=== PATIENT | female | born 1965 | race Caucasian/White ===

== ENCOUNTER 2017-08-29 08:42 | Day surgery (SDC) | payer OTHER ==
[~2017-08-29 08:42] MED LIST: CEFAZOLIN 1 GM INJ
[2017-08-29] MEDS ORDERED: DEXAMETHASONE 4 MG/ML 1 ML INJ ×2 (09:34→09:56)
[2017-08-29] MEDS ORDERED: ONDANSETRON 4 MG INJ (09:55)
[2017-08-29] MEDS ORDERED: PROPOFOL 20 ML (09:55)
[2017-08-29] MEDS ORDERED: KETOROLAC 30 MG INJ (09:56)
[2017-08-29] MEDS ORDERED: FENTAnyl 50 MCG/ML VIAL (09:56)
[2017-08-29] MEDS: BUPIVACAINE 0.5% (SDV) 30 ML INJ (10:36)
[2017-08-29] MEDS: MIDAZOLAM 1 MG/ML 2 ML INJ (10:37)
[2017-08-29] MEDS: POVIDONE IODINE 10% 28.4 GM OINT (10:38)
[2017-08-29] MEDS ORDERED: HYDROmorphONE (0.2 MG/ML) 10ML SYG IV ×3 (11:00)
[2017-08-29] MEDS ORDERED: METOCLOPRAMIDE 10 MG INJ IV (11:00)
[2017-08-29] MEDS ORDERED: OXYCODONE/ACETAMINOPHEN (5/325) TAB PO ×2 (11:00)
== END 2017-08-29 12:35 | disposition home or self-care (01) ==
LOC: SDS 08:42
DX: D17.23 Benign lipomatous neoplasm of skin and subcutaneous tissue of right leg (principal); M06.9 Rheumatoid arthritis, unspecified
CPT/HCPCS: 11426; 88307